=== PATIENT | male | born 1995 | race Caucasian/White ===

== ENCOUNTER 2017-07-28 04:59 | Emergency (ER) | payer BC ==
[2017-07-28] MEDS ORDERED: LORazepam 2 MG/ML VIAL ONE (05:26)
[2017-07-28] MEDS ORDERED: NA CHLORIDE 0.9% 1,000 ML ONE (05:26)
--- NOTE | 2017-07-28 06:24 | ER ---
Nurse's Notes [facility] Name: Javon Bazzi Age: 22 yrs Sex: Male : 1995 Arrival Date: 07/28/2017 Time: 05:03 Bed 6 Private MD: Diagnosis: Chest pain, unspecified;Adverse effect of amphetamines Presentation: 07/28 05:14 Presenting complaint: Patient states: he took vyvance to stay awake to study he took bb three 70 mg tablets in a 36 hour period and now he is having chest pain and left arm numbness. Transition of care: patient was not received from another setting of care. Onset of symptoms was July 28, 2017. Care prior to arrival: None. 05:14 Method Of Arrival: Ambulatory bb 05:14 Acuity: ALICE 4 bb Historical: - Allergies: 05:17 No Known Allergies; bb - Home Meds: 05:17 Vyvanse 70 mg oral cap 1 cap once daily [Active]; bb - PMHx: 05:17 Anxiety; Bipolar disorder; Depression; Schizophrenia; bb - PSHx: 05:17 None; bb - Immunization history:: Adult Immunizations up to date. - Social history:: Smoking status: Patient/guardian denies using tobacco, Patient/guardian denies using alcohol, street drugs. Screenin:16 Abuse screen: Denies threats or abuse. Nutritional screening: No deficits noted. ea Tuberculosis screening: No symptoms or risk factors identified. Fall Risk None identified. Assessment: 05:30 General: Appears in no apparent distress. Behavior is cooperative, restless. Pain: ea Denies pain. Neuro: Level of Consciousness is awake, alert, obeys commands, Oriented to person, place, time, situation. Cardiovascular: Heart tones present Patient's skin is warm and dry. Respiratory: Airway is patent Respiratory effort is even, unlabored, Respiratory pattern is regular, symmetrical. GI: No signs and/or symptoms were reported involving the gastrointestinal system. : No signs and/or symptoms were reported regarding the genitourinary system. EENT: No signs and/or symptoms were reported regarding the EENT system. Derm: Skin is pink, warm \T\ dry. 06:38 Reassessment: PT D/C HOME AMBULATORY WITH FRIEND, DX WITH NONCARDIAC CP 2/2 AMPHETAMINE bp USE. Vital Signs: 05:17 BP 139 / 86; Pulse 75; Resp 18 S; Pulse Ox 96% on R/A; Weight 72.57 kg (R); Height 5 bb ft. 9 in. (175.26 cm) (R); Pain 5/10; 06:30 BP 154 / 98; Pulse 62; Resp 16; Pulse Ox 100% ; bp 05:17 Body Mass Index 23.63 (72.57 kg, 175.26 cm) cecilio ED Course: 05:03 Patient arrived in ED. do 05:10 Jorge Sauceda, RN is Primary Nurse. bp 05:12 Seferino Amaya MD is Attending Physician. gs 05:16 Triage completed. bb 05:17 Arm band placed on Patient placed in an exam room, on a stretcher, on cardiac rehabilitation specialist, bb on pulse oximetry. EKG completed in triage. Results shown to MD. 05:30 Patient has correct armband on for positive identification. Bed in low position. Call bp light in reach. Side rails up X2. Adult w/ patient. 05:41 Inserted saline lock: 20 gauge in right antecubital area, using aseptic technique. [id number] Blood collected. 06:38 No provider procedures requiring assistance completed. IV discontinued, intact, bp bleeding controlled, No redness/swelling at site. Pressure dressing applied. Administered Medications: 05:40 Drug: NS 0.9% 1000 ml Route: IV; Rate: 1 bolus; Site: right antecubital; ea 06:42 Follow up: IV Status: Completed infusion bp 05:40 Drug: Ativan 0.5 mg Route: IVP; Site: right antecubital; ea 06:42 Follow up: Response: Anxiety decreased bp 06:42 Follow up: Response: No adverse reaction bb Outcome: 06:23 Discharge ordered by . gs 06:41 Discharged to home ambulatory, with friend. bp 06:41 Condition: stable 06:41 Discharge instructions given to patient, Instructed on discharge instructions, follow up and referral plans. Demonstrated understanding of instructions, follow-up care. 06:43 Patient left the ED. bp Signatures: Candice Antonio, RN RN Padmini Cruz Jennifer [id number] Giulia Harrison RN RN ea Starr, Gregory, MD MD gs Peltier, Brian, RN RN bp
--- NOTE | 2017-07-28 06:24 | EDPHYS ---
Physician Documentation [facility] Name: Javon Bazzi Age: 22 yrs Sex: Male : 1995 Arrival Date: 07/28/2017 Time: 05:03 Bed 6 Private MD: ED Physician Seferino Amaya HPI: 07/28 06:19 This 22 yrs old Male presents to ER via Ambulatory with complaints of gs Possible Overdose. 06:19 The patient presents to the emergency department after a known overdose, that was gs accidental, took extra vyvanse tonite to study better, feels nervous brief episodes of mild chest pain. Associated signs and symptoms: Pertinent negatives: apnea, auditory hallucinations, dizziness. Severity of symptoms: At their worst the symptoms were mild in the emergency department the symptoms are unchanged. The patient has experienced similar episodes in the past, a few times. Historical: - Allergies: 05:17 No Known Allergies; bb - Home Meds: 05:17 Vyvanse 70 mg oral cap 1 cap once daily [Active]; bb - PMHx: 05:17 Anxiety; Bipolar disorder; Depression; Schizophrenia; bb - PSHx: 05:17 None; bb - Immunization history:: Adult Immunizations up to date. - Social history:: Smoking status: Patient/guardian denies using tobacco, Patient/guardian denies using alcohol, street drugs. ROS: 06:19 All other systems are negative. gs Exam: 06:19 Head/Face: Normocephalic, atraumatic. Eyes: Pupils equal round and reactive to light, gs extra-ocular motions intact. Lids and lashes normal. Conjunctiva and sclera are non-icteric and not injected. Cornea within normal limits. Periorbital areas with no swelling, redness, or edema. ENT: Nares patent. No nasal discharge, no septal abnormalities noted. Tympanic membranes are normal and external auditory canals are clear. Oropharynx with no redness, swelling, or masses, exudates, or evidence of obstruction, uvula midline. Mucous membranes moist. Neck: Trachea midline, no thyromegaly or masses palpated, and no cervical lymphadenopathy. Supple, full range of motion without nuchal rigidity, or vertebral point tenderness. No Meningismus. Chest/axilla: Normal chest wall appearance and motion. Nontender with no deformity. No lesions are appreciated. Cardiovascular: Regular rate and rhythm with a normal S1 and S2. No gallops, murmurs, or rubs. Normal PMI, no JVD. No pulse deficits. Respiratory: Lungs have equal breath sounds bilaterally, clear to auscultation and percussion. No rales, rhonchi or wheezes noted. No increased work of breathing, no retractions or nasal flaring. Abdomen/GI: Soft, non-tender, with normal bowel sounds. No distension or tympany. No guarding or rebound. No evidence of tenderness throughout. Back: No spinal tenderness. No costovertebral tenderness. Full range of motion. Skin: Warm, dry with normal turgor. Normal color with no rashes, no lesions, and no evidence of cellulitis. MS/ Extremity: Pulses equal, no cyanosis. Neurovascular intact. Full, normal range of motion. Neuro: Awake and alert, GCS 15, oriented to person, place, time, and situation. Cranial nerves II-XII grossly intact. Motor strength 5/5 in all extremities. Sensory grossly intact. Cerebellar exam normal. Normal gait. 06:19 Constitutional: The patient appears alert, awake. 06:19 Psych: Behavior/mood is anxious. 06:23 ECG was reviewed by the Attending Physician. Vital Signs: 05:17 BP 139 / 86; Pulse 75; Resp 18 S; Pulse Ox 96% on R/A; Weight 72.57 kg (R); Height 5 bb ft. 9 in. (175.26 cm) (R); Pain 5/10; 06:30 BP 154 / 98; Pulse 62; Resp 16; Pulse Ox 100% ; bp 05:17 Body Mass Index 23.63 (72.57 kg, 175.26 cm) bb MDM: 05:12 Patient medically screened. gs 06:19 Differential diagnosis: polypharmacy, over medication, mi. Data reviewed: vital signs, nurses notes. ED course: refused cxr, symptoms resolved. 07/28 05:21 Order name: Troponin (emerg Dept Use Only); Complete Time: 06:18 EC:23 Rate is 57 beats/min. Rhythm is regular, Sinus bradycardia. FL interval is normal. QRS gs interval is normal. QT interval is normal. T waves are Normal. No ST changes noted. Clinical impression: Normal ECG. Interpreted by me. Administered Medications: 05:40 Drug: NS 0.9% 1000 ml Route: IV; Rate: 1 bolus; Site: right antecubital; ea 06:42 Follow up: IV Status: Completed infusion bp 05:40 Drug: Ativan 0.5 mg Route: IVP; Site: right antecubital; ea 06:42 Follow up: Response: Anxiety decreased bp 06:42 Follow up: Response: No adverse reaction bb Disposition: 07/28/17 06:23 Discharged to Home. Impression: Chest pain, unspecified, Adverse effect of amphetamines. - Condition is Stable. - Discharge Instructions: Nonspecific Chest Pain. - Medication Reconciliation Form, Thank You Letter, Antibiotic Education, Prescription Opioid Use form. - Follow up: Private Physician; When: 2 - 3 days; Reason: Re-evaluation by your physician. Signatures: Dispatcher [employer] Candice Gomez, RN RN Giulia Hirsch RN RN Seferino Toribio MD MD gs Peltier, Brian RN RN bp Corrections: (The following items were deleted from the chart) 06:36 05:21 Chest Single View+[email or web address] ordered. EDMS EDMS
--- NOTE | 2017-07-29 07:38 | EKG ---
Test Date: 2017-07-28 Test Time: 05:12:10 Lead Developer: KALI MEASUREMENT RESULTS: Intervals: Rate: 57 DC: 126 QRSD: 94 QT: 410 QTc: 399 [place]: P: 47 DC: 126 QRS: 55 T: 36 INTERPRETIVE STATEMENTS: Sinus bradycardia with sinus arrhythmia Otherwise normal ECG Compared to ECG 01/08/2017 21:26:47 Early repolarization no longer present Electronically Signed On 07-29-17 07:37:41 CDT by Dannie Hines
== END 2017-07-28 06:43 | disposition home or self-care (01) ==
LOC: ER 04:59
DX: R07.9 Chest pain, unspecified (principal); T43.625A Adverse effect of amphetamines, initial encounter; F31.9 Bipolar disorder, unspecified; F20.9 Schizophrenia, unspecified
CPT/HCPCS: 36415; 84484; 93005; 96361; 96374; 99284; J7030